=== PATIENT | male | born 2000 | race Caucasian/White ===

== ENCOUNTER 2023-04-15 15:58 | Emergency (ER) | payer SELFPAY ==
[2023-04-15 16:02] VITALS: BP 125/70; PULSE 95; RESP 18; TEMP 36.8; O2SAT 100
--- NOTE | 2023-04-15 16:54 | ED.GENADULT ---
HPI - General Adult General Chief complaint: Wound/Laceration Stated complaint: laceration Time Seen by Provider: 04/15/23 16:03 History of Present Illness HPI narrative: 22-year-old male presenting to the emergency department for evaluation of a laceration to his left hand. Patient states he was carving his name into a tree when he cut his left hand. Patient states this was not self-harm. Patient did admit to smoking THC prior to the injury. Patient states his tetanus is up-to-date Related Data Allergies Allergy/AdvReac Type Severity Reaction Status Date / Time No Known Allergies Allergy Verified 04/15/23 16:12 Review of Systems Review of Systems: All systems reviewed & are unremarkable except as noted in HPI and below Exam Narrative: APPEARANCE: Well appearing, no pain, no distress, well-nourished. HEAD: normocephalic, atraumatic. EYES: PERRLA/EOMI, conjunctivae clear. NOSE: Normal no drainage NECK: Supple. No adenopathy, no masses. RESPIRATORY: Airway patent, respirations nonlabored. Clear to auscultation bilaterally, no rales, rhonchi, wheezing. CARDIOVASCULAR: Regular rate and rhythm without murmurs rubs or gallops. ABDOMINAL: Soft, nontender, nondistended, normal bowel sounds MUSCULOSKELETAL: Moves all extremities. Strength/ROM intact, No edema, No calf tenderness. NEURO: Alert. Cranial nerves II through XII intact. SKIN: 2 cm laceration to left palm Course Course Emergency Course: Laceration was repaired as described the procedure note. Patient's tetanus was up-to-date. Vital Signs Vital signs: Vital Signs Temperature 98.2 F 04/15/23 16:02 Pulse Rate 95 04/15/23 16:02 Respiratory Rate 18 04/15/23 16:02 Blood Pressure 125/70 04/15/23 16:02 Pulse Oximetry 100 04/15/23 16:02 Temperature 98.2 F 04/15/23 16:02 Pulse Rate 95 04/15/23 16:02 Respiratory Rate 18 04/15/23 16:02 Blood Pressure 125/70 04/15/23 16:02 Pulse Oximetry 100 04/15/23 16:02 Procedures Laceration Laceration 1: Date: 04/15/23 Time: 16:54 Side (If applicable): left Size (cm): 2 Description: linear Depth: simple, single layer Local Anesthetic: lidocaine 1% Amount of anesthesia used (mL): 2 Pre-repair: wound explored and irrigated ====== Skin Level ====== Skin layer closed with: nylon Size (cm): 5-0 Number of sutures: 2 Technique: simple, interrupted ====== Subcutaneous Layer ====== ====== Muscle Layer ====== ====== Tendon Layer ====== Medical Decision Making Vital Signs Vital Signs: Vital Signs Temperature 98.2 F 04/15/23 16:02 Pulse Rate 95 04/15/23 16:02 Respiratory Rate 18 04/15/23 16:02 Blood Pressure 125/70 04/15/23 16:02 Pulse Oximetry 100 04/15/23 16:02 Temperature 98.2 F 04/15/23 16:02 Pulse Rate 95 04/15/23 16:02 Respiratory Rate 18 04/15/23 16:02 Blood Pressure 125/70 04/15/23 16:02 Pulse Oximetry 100 04/15/23 16:02 Discharge Plan Discharge Clinical Impression: Laceration Patient Disposition: Home, Self-Care Condition: Stable Instructions: Antibiotic Form, Laceration (ED) Additional Instructions: Sutures need to be removed in 7-10 days. Have close follow-up with your primary care physician. Do not carve your name into trees. Follow-up/Referrals: PHYSICIAN,DEMO COORDINATOR [Primary Care Provider] -
== END 2023-04-15 17:15 | disposition home or self-care (01) ==
PROVIDERS: Emergency Provider Emergency Medicine
DX: S61.412A Laceration without foreign body of left hand, initial encounter (principal); W26.0XXA Contact with knife, initial encounter
CPT/HCPCS: 12001; 99282